=== PATIENT | female | born 1985 | race Caucasian/White ===

== ENCOUNTER 2019-08-01 23:42 | Emergency (ER) | payer BC ==
[2019-08-01] MEDS ORDERED: Sodium Chloride 0.9% 1,000 ML IV SCH (23:45)
[2019-08-01 23:52] VITALS: BP 157/95; PULSE 111
[2019-08-01] MEDS ORDERED: Famotidine 20 MG/2 ML SDV IVPUSH ONE (23:55)
[2019-08-01] MEDS ORDERED: methylPREDNISolone Sodium Succinate 125 MG/2 ML SDV IVPUSH ONE (23:55)
[2019-08-01] MEDS ORDERED: diphenhydrAMINE 50 MG/ML SDV IVPUSH ONE (23:56)
--- NOTE | 2019-08-02 | EDM.PDOC ---
ED HPI GENERAL MEDICAL PROBLEM - General Chief Complaint: Allergic Reaction Stated Complaint: ALLERGIC REACTION Time Seen by Provider: 08/01/19 23:49 Source of Information: Reports: Patient, Family (spouse) History Limitations: Reports: No Limitations - History of Present Illness INITIAL COMMENTS - FREE TEXT/NARRATIVE: 33-year-old female presents to the ED with an acute allergic reaction. Symptoms started about an hour ago. She reports that her and her were out to her 's [employer] constitution party related to his workplace. They had prime rib and pecans on top of placed potatoes. She can't remember eating anything that she hasn't eaten before. She's been on no medications. She's not been sick in any fashion or form. Only allergic reaction of passes been to topical medication used time of surgery she developed erythema of the abdominal wall. Severe nasal congestion swelling of her upper eyelids conjunctival inflammation and swelling or edema she throat itchy ear canals or eustachian tubes. No trouble breathing. Generalized urticaria with erythema and giant hives particularly on the abdomen and groin. Of course severe generalized pruritus. Patient took 50 mg of Benadryl at home within the last 45 minutes. She has no known allergies. Onset: Today Onset Date: 08/01/19 Onset Time: 23:00 Duration: Minutes: Location: Reports: Generalized (Generalized urticaria and pruritus) Quality: Reports: Other Severity: Severe (Generalized urticaria with itching.) Improves with: Reports: None Worsens with: Reports: None Context: Reports: Other ([place] likely to be foodborne as she ate out tonight and had foods that she would not normally eat.). Denies: Activity, Exercise, Lifting, Sick Contact, Trauma Associated Symptoms: Reports: Cough, Rash, Other (Itching throat ears eyes). Denies: Confusion, Chest Pain, cough w sputum, Diaphoresis, Fever/Chills, Headaches, Loss of Appetite (Tip of her throat.), Malaise, Nausea/Vomiting, Seizure (Analyzed urticaria with erythema), Shortness of Breath, Syncope Treatments SAMPLE PROCESSOR: Reports: Other (see below) (She took Benadryl 50 mg before coming to the ED.) - Related Data Allergies Allergy/AdvReac Type Severity Reaction Status Date / Time No Known Allergies Allergy Verified 08/01/19 23:51 Home Meds: Home Meds ODH601/Iron Fumarate/FA/DSS [ 19 Tablet] 1 each PO DAILY 08/01/19 [ History] predniSONE [Prednisone] 20 mg PO BID #6 tablet 08/02/19 [Rx] Past Medical History - Past Health History Medical/Surgical History: Denies Medical/Surgical History HEENT History: Reports: Allergic Rhinitis, Impaired Vision Cardiovascular History: Reports: None Respiratory History: Reports: None Gastrointestinal History: Reports: None Genitourinary History: Reports: Other (See Below) Other Genitourinary History: Has IUD-Mirena ACADEMIC TUTOR History: Reports: Spontaneous Musculoskeletal History: Reports: None Neurological History: Reports: Concussion Other Neuro History: Concussion at 3 yoa Psychiatric History: Reports: None Endocrine/Metabolic History: Reports: None Hematologic History: Reports: Iron Deficiency Immunologic History: Reports: None Oncologic (Cancer) History: Reports: None Dermatologic History: Reports: None - Infectious Disease History Infectious Disease History: Reports: None - Past Surgical History Female Surgical History: Reports: Other (See Below) Other Female Surgeries/Procedures: Pt had left ovary removed. Social & Family History - Family History Family Medical History: Noncontributory - Tobacco Use Smoking Status *Q: Never Smoker - Caffeine Use Caffeine Use: Reports: Tea - Recreational Drug Use Recreational Drug Use: No - Living Situation & Occupation Living situation: Reports: Occupation: Employed ED ROS ALLERGIC REACTION - Review of Systems Review Of Systems: See Below Constitutional: Reports: No Symptoms HEENT: Reports: Throat Swelling (Itching in her throat but no trouble swallowing.), Other (In the eustachian tubes back of her throat and eyes) Respiratory: Denies: Shortness of Breath, Wheezing, Pleuritic Chest Pain, Cough Cardiovascular: Denies: Chest Pain, Blood Pressure Problem, Claudication, Dyspnea on Exertion, Edema, Lightheadedness, Orthopnea Endocrine: Reports: No Symptoms GI/Abdominal: Reports: No Symptoms : Reports: No Symptoms Musculoskeletal: Reports: No Symptoms Skin: Reports: Rash (Developed generalized urticaria), Urticaria ( with pruritus.) Neurological: Reports: No Symptoms Psychiatric: Reports: No Symptoms ED EXAM GENERAL NO PERIP PULSE - Physical Exam Exam: See Below Exam Limited By: No Limitations General Appearance: Alert, WD/WN, Moderate Distress, Other (Vital signs show temperature 36.5 which is likely inaccurate. Pulse is 111 respiratory disease 18 BP 157/95 sats 100%.) Eye Exam: Bilateral Eye: Conjunctival Injection (Duodenum of the conjunctiva bilaterally with mild injection.), Periorbital Changes (Edema of the upper eyelids bilaterally.) Ears: Other (Bilateral serous otitis media) Nose: Nasal Swelling (Nose is completely swollen closed), Clear Rhinorrhea ( from allergic response) Throat/Mouth: Normal Inspection, Normal Lips, Normal Oropharynx, Other Head: Atraumatic, Normocephalic Neck: Normal Inspection, Supple, Non-Tender, Full Range of Motion, Other (No stridor). No: Lymphadenopathy (L), Lymphadenopathy (R) Respiratory/Chest: No Respiratory Distress, Lungs Clear, Normal Breath Sounds, No Accessory Muscle Use. No: Wheezing, Stridor Cardiovascular: Normal Peripheral Pulses, No Edema, No Gallop, No Murmur, No Rub , Tachycardia (Tachycardia at rest. More due to anxiety) GI/Abdominal: Normal Bowel Sounds, Soft, Non-Tender, No Organomegaly, No Abnormal Bruit, No Mass, Pelvis Stable Neurological: Alert, Oriented, CN II-XII Intact, Normal Cognition, Normal Gait Psychiatric: Anxious Skin Exam: Rash, Other (Revised urticaria with giant hives and erythema.) Course - Vital Signs Last Recorded V/S: Last Vital Signs Temp 36.5 C 08/01/19 23:47 Pulse 111 H 08/01/19 23:47 Resp 18 08/01/19 23:47 BP 157/95 H 08/01/19 23:47 Pulse Ox 100 08/01/19 23:47 - Orders/Labs/Meds Meds: Medications Discontinued Medications Generic Name Dose Route Start Last Admin Trade Name Qi PRN Reason Stop Dose Admin Diphenhydramine HCl 25 mg 08/01/19 23:56 08/02/19 00:03 Benadryl IVPUSH 08/01/19 23:57 25 mg ONETIME ONE Administration Famotidine 20 mg 08/01/19 23:55 08/02/19 00:06 Pepcid IVPUSH 08/01/19 23:56 20 mg ONETIME ONE Administration Sodium Chloride 1,000 mls @ 500 mls/hr 08/01/19 23:45 08/02/19 00:03 Normal Saline IV 500 mls/hr ASDIRECTED CARLOS A Administration Methylprednisolone Sodium Succinate 125 mg 08/01/19 23:55 08/02/19 00:05 Solu-Medrol IVPUSH 08/01/19 23:56 125 mg ONETIME ONE Administration - Radiology Interpretation Free Text/Narrative:: 33-year-old female presents to the ED with acute allergic response to unknown substance. It is suspect it is something that she ate at suppertime tonight. She ate at a [place] constitution party of her husbands workplace. She developed symptoms 3 -4 hours later. She is not known to have any allergies other than to topical chlorhexidine or Betadine which gave her a rash on the abdominal wall after surgery. At present she has severe swelling of the nasal turbinates with occlusion of the naris. There is a cystitis media mild conjunctival edema and swelling of her upper lids. Lips are normal oropharynx and is normal swallowing has an itchy throat. Lungs are clear without any wheezing. She has generalized urticaria and giant hives. Plan patient took 50 mg Benadryl by mouth prior to coming to the ED. She'll be given 25 mg IV. Given Cymetra 125 mg IV and Pepcid 20 mg IV in the ED. IV will be normal saline at 500 mils an hour Departure - Departure Time of Disposition: 00:43 Disposition: Home, Self-Care 01 Condition: Fair Clinical Impression: Urticaria due to food allergy Allergic reaction Qualifiers: Encounter type: initial encounter Qualified Code(s): T78.40XA - Allergy, unspecified, initial encounter - Discharge Information *PRESCRIPTION DRUG MONITORING PROGRAM REVIEWED*: Not Applicable *COPY OF PRESCRIPTION DRUG MONITORING REPORT IN PATIENT CAROLS: Not Applicable Prescriptions: predniSONE [Prednisone] 20 mg PO BID #6 tablet Instructions: Hives, [id number] Referrals: PCP,None [Primary Care Provider] - Forms: ED Department Discharge Additional Instructions: Evaluation the emergency room tonight in regards to acute onset of allergic reaction 3-4 hours after eating. Indications and no recent viral illnesses to account for development of generalized hives with significant itching. The reaction was an acute reaction involving marked swelling of the nasal mucosa and itching of the eyes and ears and throat. No wheezing or respiratory problems.Covered with hives. You had taken Benadryl 50 mg at home prior to coming to the ED. In the ED received intravenous fluids and her vital signs remained stable. You never did develop any respiratory distress. You are treated with 25 mg of Benadryl intravenously in the ED and Solu-Medrol 125 mg and Pepcid 20 mg IV for acute allergic reaction. Medrol takes about 4-6 hours to start to work well. He may use Benadryl 50 mg by mouth every 6 hours if needed for further itching or hives development. Suggest prednisone 20 mg by mouth with breakfast and supper for the next 3 days to ensure that the mass cells in your skin settle down and do not continue to cause hives and allergic response. He suspects it was something you a tonight to precipitated acute allergic reaction. Unfortunately is no way to tell what this could've been. Return to medical care if you develop any trouble swallowing or breathing. Note this is highly unlikely to occur Sepsis Event Note - Evaluation Sepsis Screening Result: No Definite Risk - Focused Exam Vital Signs: Vital Signs Temp Pulse Resp BP Pulse Ox 08/01/19 23:47 36.5 C 111 H 18 157/95 H 100 Date Exam was Performed: 08/02/19 Time Exam was Performed: 02:09
== END 2019-08-02 00:55 | disposition home or self-care (01) ==
LOC: JD.ED 23:42
DX: L50.0 Allergic urticaria (principal); T78.1XXA Other adverse food reactions, not elsewhere classified, initial encounter
CPT/HCPCS: 96361; 96374; 96375; 99283; J1200; J2930; J3490; J7030; 99284

== ENCOUNTER 2020-10-30 06:33 | Inpatient (IN) | payer BC ==
[2020-10-30] MEDS ORDERED: Calcium Carbonate 500 MG Tab.Chew PO PRN (19:33)
[2020-10-30] MEDS ORDERED: Acetaminophen 325 MG Tab PO PRN (19:33)
[2020-10-30] MEDS ORDERED: Sodium Chloride 0.9% 10 ML Syringe FLUSH PRN (19:33)
[2020-10-30] MEDS ORDERED: Ondansetron 4 MG/2 ML SDV IVPUSH PRN (19:33)
[2020-10-30] MEDS ORDERED: Lidocaine 1% 50 ML MDV INJECT ONE (19:33)
[2020-10-30] MEDS ORDERED: Oxytocin/Lactated Ringers 10 UNIT/1,000 ML BAG IV SCH ×2 (19:45)
[2020-10-30] MEDS ORDERED: Ampicillin 2 GM in Sodium Chloride 0.9% 100 ML IV ONE (20:00)
--- NOTE | 2020-10-30 20:01 | PCM.LDHP ---
L&D History of Present Illness - General Date of Service: 10/30/20 Admit Problem/Dx: Patient Status Order with Admit Dx/Problem 10/30/20 19:33 Patient Status [ADT] Routine Admission Diagnosis/Problem Admission Diagnosis/Problem Source of Information: Patient History Limitations: Reports: No Limitations - History of Present Illness Introduction:: Christy Tim is a GBS + 34 year old female at 40-6 weeks gestation age (RUBI 10/24/20) by 12 week US and LMP who presents today for induction of labor. She has had some irregular contractions but nothing painful. She denies any leaking of fluid, changes in her discharge or vaginal bleeding. She reports good movement. Pain Score: 0 Present Illness Comments:: Christy Tim is a GBS + O + 34 year old female at 40-6 weeks gestation age (RUBI 10/24/20) by 12 week US and LMP who presents today for induction of labor. Patient has received routine care and denies any complications during her . She was started on iron supplementation during her for anemia. she received the flu vaccine in May of 2020 and Tdap in July of 2020. Her is complicated by: * anemia in and has been on iron supplementation OBGYN History 07/31/2019 - miscarriage at 10 weeks G2: current labs: Blood type: O+ Antibody screen: Negative Rubella status: immune Hepatitis B surface antigen: negative RPR: negative HIV: negative Gonorrhea: Negative Chlamydia: negative Anatomy US: Normal anatomy, normal placental location One hour glucose tolerance test: 103 Second trimester hematocrit/hemoglobin: 36.0%/11.8 Platelets: 233,000 GBS status: positive - Related Data Allergies/Adverse Reactions: Allergies Allergy/AdvReac Type Severity Reaction Status Date / Time chlorhexidine Allergy Hives Verified 10/30/20 19:33 Home Medications: Home Meds Prenat 115/Iron Fum/Folic/Dss [ 19 Tablet] 1 each PO DAILY 08/01/19 [History] predniSONE [Prednisone] 20 mg PO BID #6 tablet 08/02/19 [Rx] Past Medical History - Past Health History Medical/Surgical History: Denies Medical/Surgical History HEENT History: Reports: Allergic Rhinitis, Impaired Vision Cardiovascular History: Reports: None Respiratory History: Reports: None Gastrointestinal History: Reports: None Genitourinary History: Reports: Other (See Below) Other Genitourinary History: Has IUD-Mirena QUILT MAKER History: Reports: Spontaneous Musculoskeletal History: Reports: None Neurological History: Reports: Concussion Other Neuro History: Concussion at 3 yoa Psychiatric History: Reports: None Endocrine/Metabolic History: Reports: None Hematologic History: Reports: Iron Deficiency Immunologic History: Reports: None Oncologic (Cancer) History: Reports: None Dermatologic History: Reports: None - Infectious Disease History Infectious Disease History: Reports: None - Past Surgical History Female Surgical History: Reports: Other (See Below) Other Female Surgeries/Procedures: Pt had left ovary removed. Social & Family History - Family History Family Medical History: No Pertinent Family History - Caffeine Use Caffeine Use: Reports: Tea - Living Situation & Occupation Living situation: Reports: Occupation: Employed H&P Review of Systems - Review of Systems: Review Of Systems: See Below General: Reports: No Symptoms HEENT: Reports: No Symptoms Pulmonary: Reports: No Symptoms Cardiovascular: Reports: No Symptoms Gastrointestinal: Reports: No Symptoms Genitourinary: Reports: No Symptoms Musculoskeletal: Reports: No Symptoms Skin: Reports: No Symptoms Psychiatric: Reports: No Symptoms Neurological: Reports: No Symptoms Hematologic/Lymphatic: Reports: No Symptoms Immunologic: Reports: No Symptoms L&D Exam - Exam Exam: See Below - Vital Signs Weight: 183 lb 11.2 oz - OB Specific Movement: Active Heart Tones: Present - Garcia Score Garcia Score Cervix Position: Midposition Garcia Score Consistency: Medium Garcia Score Effacement: >80% Garcia Score Dilation: 3-4 cm Garcia Score Infant's Station: -1 ,0 Garcia Score Total: 9 - Exam General: Alert, Oriented HEENT: Conjunctiva Clear, EOMI Lungs: Clear to Auscultation, Normal Respiratory Effort Cardiovascular: Regular Rate, Regular Rhythm GI/Abdominal Exam: Normal Bowel Sounds, Soft, Non-Tender Extremities: Normal Inspection, Non-Tender, No Pedal Edema, Normal Capillary Refill Skin: Warm, Dry, Intact Psychiatric: Alert, Normal Affect, Normal Mood - Patient Data Lab Results Last 24 hrs: Laboratory Results - last 24 hr 10/30/20 Range/Units 19:46 WBC 8.38 (3.98-10.04) K/mm3 RBC 3.82 L (3.98-5.22) M/mm3 Hgb 11.9 (11.2-15.7) gm/dl Hct 35.9 (34.1-44.9) % MCV 94.0 (79.4-94.8) fl MCH 31.2 (25.6-32.2) pg MCHC 33.1 (32.2-35.5) g/dl RDW Std Deviation 41.7 (36.4-46.3) fL Plt Count 180 L (182-369) K/mm3 MPV 12.5 H (9.4-12.3) fl Neut % (Auto) 64.2 (34.0-71.1) % Lymph % (Auto) 24.8 (19.3-51.7) % [place] % (Auto) 9.8 (4.7-12.5) % Eos % (Auto) 0.8 (0.7-5.8) Baso % (Auto) 0.2 (0.1-1.2) % Neut # (Auto) 5.37 (1.56-6.13) K/mm3 Lymph # (Auto) 2.08 (1.18-3.74) K/mm3 [place] # (Auto) 0.82 H (0.24-0.36) K/mm3 Eos # (Auto) 0.07 (0.04-0.36) K/mm3 Baso # (Auto) 0.02 (0.01-0.08) K/mm3 Result Diagrams: 10/30/20 19:46 - Problem List (1) 40 weeks gestation of SNOMED Code(s): 98838673 ICD Code: Z3A.40 - 40 WEEKS GESTATION OF Status: Acute Current Visit: Yes (2) Group B streptococcal infection during SNOMED Code(s): 323365969 ICD Code: O98.819 - OTH MATERNAL INFEC/PARASTC DISEASES COMP PREG, UNSP TRI; B95.1 - STREPTOCOCCUS, GROUP B, CAUSING DISEASES CLASSD ELSWHR Status: Acute Current Visit: Yes (3) Encounter for induction of labor SNOMED Code(s): 083621214 ICD Code: Z34.90 - ENCNTR FOR SUPRVSN OF NORMAL , UNSP, UNSP TRIMESTER Status: Acute Current Visit: Yes Problem List Initiated/Reviewed/Updated: Yes Orders Last 24hrs: Active Orders 24 hr Category Date Time Status Patient Status [ADT] Routine ADT 10/30/20 19:33 Active Activity as Tolerated [RC] PFP Care 10/30/20 19:33 Active Communication Order [RC] ASDIRECTED Care 10/30/20 19:33 Active Heart Tones [RC] ASDIRECTED Care 10/30/20 19:34 Active Non Stress Test [RC] PER UNIT ROUTINE Care 10/30/20 19:33 Active Notify Provider [RC] PFP Care 10/30/20 19:33 Active Notify Provider [RC] PRN Care 10/30/20 19:33 Active Peripheral IV Care [RC] . DIRECTED Care 10/30/20 19:34 Active Vital Signs [RC] PER UNIT ROUTINE Care 10/30/20 19:33 Active Regular Diet [DIET] Diet 10/31/20 Breakfast Active CORONAVIRUS COVID-19 MINISTERIO [MOLEC] Stat Lab 10/30/20 19:37 Ordered RAPID PLASMA REAGIN,RPR [CHEM] Routine Lab 10/30/20 19:46 Received Acetaminophen [TylenoL] Med 10/30/20 19:33 Active 650 mg PO Q4H PRN Ampicillin 1 gm Med 10/31/20 00:00 Active Sodium Chloride 0.9% [Normal Saline] 100 ml IV Q4H Ampicillin 2 gm Med 10/30/20 20:00 Active Sodium Chloride 0.9% [Normal Saline] 100 ml IV ONETIME Calcium Carbonate [Tums] Med 10/30/20 19:33 Active 1,000 mg PO Q2H PRN Lactated Ringers [Ringers, Lactated] 1,000 ml Med 10/30/20 19:45 Active IV ASDIRECTED Nalbuphine [Nubain] Med 10/30/20 19:33 Active 10 mg IVPUSH Q2H PRN Ondansetron [Zofran] Med 10/30/20 19:33 Active 4 mg IVPUSH Q4H PRN Oxytocin/Lactated Ringers [Pitocin in LR 10 Units/1,000 Med 10/30/20 19:45 Active ML] 10 unit in 1,000 ml IV .CONTINUOUS Oxytocin/Lactated Ringers [Pitocin in LR 10 Units/1,000 Med 10/30/20 19:45 Active ML] 10 unit in 1,000 ml IV TITRATE Sodium Chloride 0.9% [Saline Flush] Med 10/30/20 19:33 Active 10 ml FLUSH ASDIRECTED PRN Electronic Heart Tones Ext w TOCO [WOMSER] Oth 10/30/20 19:33 Ordered Routine Electronic Heart Tones Internal [WOMSER] Per Unit Ot 10/30/20 19:33 Ord ered Routine Peripheral IV Insertion Adult [OM.PC] Routine Oth 10/30/20 19:33 Ordered Resuscitation Status Routine Resus Stat 10/30/20 19:33 Ordered Assessment/Plan Comment:: Patient is a 34 year old GBS + O+ 34 year old at 40-6 weeks gestational age with an RUBI of 10/24/20 by 12 week US who presents for induction of labor. Artificial rupture of membranes performed at bedside with scant clear pink tinged fluid. Mother and tolerated the procedure without difficulty. 1. Induction of labor - AROM, pitocin for augmentation if patient is having insufficient contraction pattern 2. Continuous monitoring 3. GBS + - no allergies, 2 mg Ampicillin given IV with repeat dose in 4 hours per protocol 4. O+ with negative antibody screen 5. Rubella immune 6. IV fluids 7. Activity as tolerated 8. Small amounts of regular diet 9. Epidural or other pain management as desired 10. Plans to breastfeed 11. Anticipate vaginal delivery unless otherwise indicated
[2020-10-30] MEDS: Lactated Ringers 1,000 ML IV SCH (20:32)
[2020-10-31] MEDS: Ampicillin 1 GM in Sodium Chloride 0.9% 100 ML IV SCH ×2 (00:30→03:56)
[2020-10-31] MEDS: Nalbuphine 10 MG/1 ML Vial IVPUSH PRN ×2 (02:00→04:00)
[2020-10-31] MEDS: Lactated Ringers 1,000 ML IV SCH (03:57)
[2020-10-31] MEDS ORDERED: Lidocaine 1% 50 ML MDV ONE (06:34)
[2020-10-31] MEDS ORDERED: Ondansetron 4 MG/2 ML SDV IVPUSH PRN (06:51)
[2020-10-31] MEDS ORDERED: ePHEDrine 50 MG/ML SDV IVPUSH PRN (06:51)
[2020-10-31] MEDS ORDERED: fentaNYL 100 MCG/2 ML SDV EPIDUR PRN (06:51)
--- NOTE | 2020-10-31 06:53 | PCM.PREANE ---
Preanesthetic Assessment - Procedure Proposed Procedure: Epidural - Anesthesia/Transfusion/Family Hx Anesthesia History: Prior Anesthesia Without Reaction Family History of Anesthesia Reaction: No Transfusion History: No Prior Transfusion(s) Intubation History: Unknown - Physical Assessment NPO Status Date: 10/31/20 Vital Signs: HR:81 Sat:99% Temp:98.6 B/P:150/89 Resp:15 Height: 1.78 m Weight: 83.007 kg ASA Class: 2 Mental Status: Alert & Oriented x3 - Lab Values: Laboratory Last Values WBC 8.38 K/mm3 (3.98-10.04) 10/30/20 19:46 RBC 3.82 M/mm3 (3.98-5.22) L 10/30/20 19:46 Hgb 11.9 gm/dl (11.2-15.7) 10/30/20 19:46 Hct 35.9 % (34.1-44.9) 10/30/20 19:46 MCV 94.0 fl (79.4-94.8) 10/30/20 19:46 MCH 31.2 pg (25.6-32.2) 10/30/20 19:46 MCHC 33.1 g/dl (32.2-35.5) 10/30/20 19:46 RDW Std Deviation 41.7 fL (36.4-46.3) 10/30/20 19:46 Plt Count 180 K/mm3 (182-369) L 10/30/20 19:46 MPV 12.5 fl (9.4-12.3) H 10/30/20 19:46 Neut % (Auto) 64.2 % (34.0-71.1) 10/30/20 19:46 Lymph % (Auto) 24.8 % (19.3-51.7) 10/30/20 19:46 [place] % (Auto) 9.8 % (4.7-12.5) 10/30/20 19:46 Eos % (Auto) 0.8 (0.7-5.8) 10/30/20 19:46 Baso % (Auto) 0.2 % (0.1-1.2) 10/30/20 19:46 Neut # (Auto) 5.37 K/mm3 (1.56-6.13) 10/30/20 19:46 Lymph # (Auto) 2.08 K/mm3 (1.18-3.74) 10/30/20 19:46 [place] # (Auto) 0.82 K/mm3 (0.24-0.36) H 10/30/20 19:46 Eos # (Auto) 0.07 K/mm3 (0.04-0.36) 10/30/20 19:46 Baso # (Auto) 0.02 K/mm3 (0.01-0.08) 10/30/20 19:46 SARS-CoV-2 RNA (MINISTERIO) Negative (NEGATIVE) 10/30/20 20:22 Above labs reviewed and noted and within acceptable ranges to proceed with epidural if desired. - Allergies Allergies/Adverse Reactions: Allergies Allergy/AdvReac Type Severity Reaction Status Date / Time chlorhexidine Allergy Hives Verified 10/30/20 19:33 - Anesthesia Plan Pre-Op Medication Ordered: None - Acknowledgements Anesthesia Type Planned: Epidural Pt an Appropriate Candidate for the Planned Anesthesia: Yes Alternatives and Risks of Anesthesia Discussed w Pt/Guardian: Yes Pt/Guardian Understands and Agrees with Anesthesia Plan: Yes PreAnesthesia Questionnaire - Past Health History Medical/Surgical History: Denies Medical/Surgical History HEENT History: Reports: Allergic Rhinitis, Impaired Vision, Other (See Below) Other HEENT History: Wear contacts/ glasses Cardiovascular History: Reports: None Respiratory History: Reports: None Gastrointestinal History: Reports: None Genitourinary History: Reports: Other (See Below) Other Genitourinary History: Has IUD-Mirena DIRECTOR OF THER[employer]Y SERVICES History: Reports: Spontaneous Musculoskeletal History: Reports: None Neurological History: Reports: Concussion Other Neuro History: Concussion at 3 yoa Psychiatric History: Reports: None Endocrine/Metabolic History: Reports: None Hematologic History: Reports: Iron Deficiency Immunologic History: Reports: None Oncologic (Cancer) History: Reports: None Dermatologic History: Reports: None - Infectious Disease History Infectious Disease History: Reports: None - Past Surgical History HEENT Surgical History: Reports: None Female Surgical History: Reports: Other (See Below) Other Female Surgeries/Procedures: Pt had left ovary removed. Neurological Surgical History: Reports: None - SUBSTANCE USE Tobacco Use Status *Q: Never Tobacco User Second Hand Smoke Exposure: No Recreational Drug Use History: No - HOME MEDS Home Medications: Home Meds Prenat 115/Iron Fum/Folic/Dss [ 19 Tablet] 1 each PO DAILY 08/01/19 [History] Calcium Citrate/Vitamin D2 [Jame-Citrate Plus Vitamin D Tab] 1 each PO ASDIRECTED 10/30/20 [History] Ferrous Sulfate [Iron] 325 mg PO ASDIRECTED 10/30/20 [History] Fish Oil/[place]-3 Fatty Acids [Fish Oil 1,000 MG] 1 each PO DAILY 10/30/20 [History]
[2020-10-31] MEDS ORDERED: Bupivacaine/fentaNYL/NS 100 ML Bag EPIDUR SCH (07:00)
[2020-10-31] MEDS ORDERED: Witch Hazel Medicated Pads 40/Jar TOP PRN (07:37)
[2020-10-31] MEDS ORDERED: Ibuprofen 600 MG Tab PO PRN (07:37)
[2020-10-31] MEDS ORDERED: Acetaminophen 325 MG Tab PO PRN (07:37)
[2020-10-31] MEDS ORDERED: Benzocaine/Menthol 20%-0.5% Spray 56 GM Canister TOP PRN (07:37)
--- NOTE | 2020-10-31 07:39 | PCM.DEL ---
<Sunny Garcia - Last Filed: 10/31/20 07:46> L & D Note - General Info Date of Service: 10/31/20 Mother's Due Date: 10/24/20 - Delivery Note Labor: Augmented by ARM Cervical Ripening Method: Other (see below) Other Cervical Ripening Method: AROM Delivery Outcome: Livebirth Delivery Method: Spontaneous Vaginal Delivery-Single Delivery Mode: Spontaneous Presentation: Right Occiput Anterior (ELIEL) Nuchal Cord: None Anesthesia Type: Other (see below) (nubain) Anesthetic: Lidocaine (Xylocaine) 1% Plain Local Anesthetic Volume: Other (30cc) Amniotic Fluid Description: Clear (pink tinge) Episiotomy Type: None Laceration: 2nd Degree Suture type: Other (Monocryl) Suture size: 3-0 Placenta: Intact, Spontaneous Cord: 3 Vessels Estimated Blood Loss: 700 Resuscitation Needed: No : Suctioned, Stimulated, Warmed Score 1 min: 8 Score 5 min: 9 Second Stage Interventions: Reports: Encouragement Given Delivery Comments (Free Text/Narrative):: Stage I: 34 year old at 40-6 weeks gestational age presented to L&D for induction of labor due to late term. AROM was preformed with scant clear fluid. Mother and baby tolerated procedure well. GBS +. Nubain given for pain control. Patient progressed to complete and began pushing. Stage II: On 10/31/20 she had a of a live female infant at 0635 weighing 3680 g (8 lbs 1.8 ounces) and 21 inches with APGARs of 8/9 in the ELIEL position. No noted nuchal cord. Infant was place on the mother's abdomen and was warmed and stimulated. The cord was cut after 2 minutes by the infant's father. Stage III: The placenta was then delivered spontaneously with gentle traction in the De Guzman presentation at 0649. Inspection demonstrated intact placenta with three vessel cord. The placenta was discarded. Inspection of the vaginal mucosa demonstrated a left sided vaginal wall laceration with a midline second degree laceration extending to the perineum. The laceration was closed using 3-0 Monocryl. EBL 700. Mom and baby stable to recovery. - General Info Date of Service: 10/31/20 - Patient Data Weight - Most Recent: 83.007 kg Lab Results Last 24 Hours: Laboratory Results - last 24 hr 10/30/20 10/30/20 Range/Units 19:46 20:22 WBC 8.38 (3.98-10.04) K/mm3 RBC 3.82 L (3.98-5.22) M/mm3 Hgb 11.9 (11.2-15.7) gm/dl Hct 35.9 (34.1-44.9) % MCV 94.0 (79.4-94.8) fl MCH 31.2 (25.6-32.2) pg MCHC 33.1 (32.2-35.5) g/dl RDW Std Deviation 41.7 (36.4-46.3) fL Plt Count 180 L (182-369) K/mm3 MPV 12.5 H (9.4-12.3) fl Neut % (Auto) 64.2 (34.0-71.1) % Lymph % (Auto) 24.8 (19.3-51.7) % [place] % (Auto) 9.8 (4.7-12.5) % Eos % (Auto) 0.8 (0.7-5.8) Baso % (Auto) 0.2 (0.1-1.2) % Neut # (Auto) 5.37 (1.56-6.13) K/mm3 Lymph # (Auto) 2.08 (1.18-3.74) K/mm3 [place] # (Auto) 0.82 H (0.24-0.36) K/mm3 Eos # (Auto) 0.07 (0.04-0.36) K/mm3 Baso # (Auto) 0.02 (0.01-0.08) K/mm3 SARS-CoV-2 RNA (MINISTERIO) Negative (NEGATIVE) - Problem List & Annotations (1) 40 weeks gestation of SNOMED Code(s): 67004318 Code(s): Z3A.40 - 40 WEEKS GESTATION OF Status: Acute Current Visit: Yes (2) Group B streptococcal infection during SNOMED Code(s): 640426068 Code(s): O98.819 - OTH MATERNAL INFEC/PARASTC DISEASES COMP PREG, UNSP TRI; B95.1 - STREPTOCOCCUS, GROUP B, CAUSING DISEASES CLASSD ELSWHR Status: Acute Current Visit: Yes (3) Encounter for induction of labor SNOMED Code(s): 623848972 Code(s): Z34.90 - ENCNTR FOR SUPRVSN OF NORMAL , UNSP, UNSP TRIMESTER Status: Acute Current Visit: Yes (4) Spontaneous vaginal delivery SNOMED Code(s): 970668621 Code(s): O80 - ENCOUNTER FOR FULL-TERM UNCOMPLICATED DELIVERY Status: Acute Current Visit: Yes (5) Second degree perineal laceration SNOMED Code(s): 8876216 Code(s): O70.1 - SECOND DEGREE PERINEAL LACERATION DURING DELIVERY Status: Acute Current Visit: Yes - My Orders Last 24 Hours: My Active Orders 10/31/20 07:27 Patient Status Manage Transfer [TRANSFER] Routine 10/31/20 07:28 Resuscitation Status Routine - Plan Plan:: Patient is a 34 year old GBS + O+ 34 year old G2 now P1011 at 41-0 weeks gestational age with an RUBI of 10/24/20 by 12 week US who presented for induction of labor with AROM and had a of a live female infant weighing 3680 g (8 lbs 1.8 ounce) with APGARs of 8/9 at 0635 on 10/31/20. 1. PPD#0 of a live female weighing 3680 g (8 lbs 1.8 ounce) with APGARs of 8/9 at 0635 on 10/31/20 2. GBS + - received 2 mg of Ampicillin followed by 2 doses of 1 mg at 0000 and 0400. 4. O+ with negative antibody screen 5. Rubella immune 6. Activity as tolerated 7. Regular diet 8. Plans to breastfeed 9. Post care per unit routine 10. Anticipate discharge in 48 hours pending tray line worker's recommendation <Frandy Plummer F - Last Filed: 10/31/20 13:11> - Patient Data Vitals - Most Recent: Last Vital Signs Temp 36.8 C 10/30/20 19:33 Pulse 90 10/30/20 19:33 Resp 16 10/30/20 19:33 BP 147/94 H 10/30/20 19:33 Pulse Ox Lab Results Last 24 Hours: Laboratory Results - last 24 hr 10/30/20 10/30/20 Range/Units 19:46 20:22 WBC 8.38 (3.98-10.04) K/mm3 RBC 3.82 L (3.98-5.22) M/mm3 Hgb 11.9 (11.2-15.7) gm/dl Hct 35.9 (34.1-44.9) % MCV 94.0 (79.4-94.8) fl MCH 31.2 (25.6-32.2) pg MCHC 33.1 (32.2-35.5) g/dl RDW Std Deviation 41.7 (36.4-46.3) fL Plt Count 180 L (182-369) K/mm3 MPV 12.5 H (9.4-12.3) fl Neut % (Auto) 64.2 (34.0-71.1) % Lymph % (Auto) 24.8 (19.3-51.7) % [place] % (Auto) 9.8 (4.7-12.5) % Eos % (Auto) 0.8 (0.7-5.8) Baso % (Auto) 0.2 (0.1-1.2) % Neut # (Auto) 5.37 (1.56-6.13) K/mm3 Lymph # (Auto) 2.08 (1.18-3.74) K/mm3 [place] # (Auto) 0.82 H (0.24-0.36) K/mm3 Eos # (Auto) 0.07 (0.04-0.36) K/mm3 Baso # (Auto) 0.02 (0.01-0.08) K/mm3 SARS-CoV-2 RNA (MINISTERIO) Negative (NEGATIVE) - Problem List Review Problem List Initiated/Reviewed/Updated: Yes - My Orders Last 24 Hours: My Active Orders 10/30/20 19:46 RAPID PLASMA REAGIN,RPR [CHEM] Routine
[2020-10-31] MEDS: Prenatal Multivitamin with Calcium/Folic Acid/Iron Tab PO SCH (09:39)
[2020-10-31] MEDS: Docusate Sodium 100 MG Cap PO SCH ×2 (09:39→20:40)
--- NOTE | 2020-11-01 06:57 | PCM.PNPP ---
- General Info Date of Service: 11/01/20 Functional Status: Reports: Pain Controlled, Tolerating Diet, Ambulating, Urinating - Review of Systems General: Reports: Fatigue Pulmonary: Reports: No Symptoms Cardiovascular: Reports: Lightheadedness Gastrointestinal: Reports: No Symptoms Genitourinary: Reports: No Symptoms Musculoskeletal: Reports: No Symptoms - Patient Data Vital Signs - Most Recent: Last Vital Signs Temp 36.8 C 11/01/20 03:34 Pulse 84 11/01/20 03:34 Resp 18 11/01/20 03:34 BP 127/76 11/01/20 03:34 Pulse Ox 95 11/01/20 03:34 Weight - Most Recent: 83.007 kg I&O - Last 24 Hours: Intake & Output 10/31/20 10/31/20 11/01/20 14:59 22:59 06:59 Intake Total 120 Balance 120 Lab Results - Last 24 Hours: Laboratory Results - last 24 hr 10/30/20 11/01/20 Range/Units 19:46 06:15 WBC 9.50 (3.98-10.04) K/mm3 RBC 2.44 L (3.98-5.22) M/mm3 Hgb 7.3 L* D (11.2-15.7) gm/dl Hct 23.7 L (34.1-44.9) % MCV 97.1 H D (79.4-94.8) fl MCH 29.9 (25.6-32.2) pg MCHC 30.8 L (32.2-35.5) g/dl RDW Std Deviation 42.8 (36.4-46.3) fL Plt Count 133 L (182-369) K/mm3 MPV 11.8 (9.4-12.3) fl RPR Non-reactive (NONREACTIVE) Med Orders - Current: Current Medications Acetaminophen (Acetaminophen 325 Mg Tab) 650 mg PO Q4H PRN PRN Reason: mild pain or fever Benzocaine/Menthol (Benzocaine/Menthol 20%-0.5% [place] 56 Gm Canister) 0 gm TOP ASDIRECTED PRN PRN Reason: Perineal Comfort Measure Last Admin: 10/31/20 09:40 Dose: 1 spray Documented by: Docusate Sodium (Docusate Sodium 100 Mg Cap) 100 mg PO BID [facility] Last Admin: 10/31/20 20:40 Dose: 100 mg Documented by: Ibuprofen (Ibuprofen 600 Mg Tab) 600 mg PO Q4H PRN PRN Reason: Mild pain or fever Prenat Multivit/Critical Power Technician/Iron/Folic Ac ( Multivitamin With Calcium/Folic Acid/Iron Tab) 1 each PO DAILY CARLOS A Last Admin: 10/31/20 09:39 Dose: 1 each Documented by: Laurel Grigsby (Laurel Grigsby Medicated Pads 40/Jar) 1 pad TOP ASDIRECTED PRN PRN Reason: Perineal Comfort Measure Last Admin: 10/31/20 09:39 Dose: 1 pad Documented by: Discontinued Medications Acetaminophen (Acetaminophen 325 Mg Tab) 650 mg PO Q4H PRN PRN Reason: Pain (Mild 1-3) and fever Calcium Carbonate/Glycine (Calcium Carbonate 500 Mg Tab.Chew) 1,000 mg PO Q2H PRN PRN Reason: Indigestion Ephedrine Sulfate (Ephedrine 50 Mg/Ml Sdv) 5 mg IVPUSH ASDIRECTED PRN PRN Reason: Hypotension Fentanyl (Fentanyl 100 Mcg/2 Ml Sdv) 100 mcg EPIDUR Q3H PRN PRN Reason: Pain Fentanyl/Bupivacaine HCl (Bupivacaine/Fentanyl/Ns 100 Ml Bag) 100 ml EPIDUR ASDIRECTED CARLOS A Ampicillin Sodium 2 gm/ Sodium (Chloride) 100 mls @ 200 mls/hr IV ONETIME ONE Stop: 10/30/20 20:29 Last Admin: 10/30/20 20:32 Dose: 200 mls/hr Documented by: Ampicillin Sodium 1 gm/ Sodium (Chloride) 100 mls @ 200 mls/hr IV Q4H [facility] Last Admin: 10/31/20 03:56 Dose: 200 mls/hr Documented by: Oxytocin/Lactated Ringer's (Pitocin In Lr 10 Units/1,000 Ml) 10 unit in 1,000 mls @ 500 mls/hr IV .CONTINUOUS CARLOS A Oxytocin/Lactated Ringer's (Pitocin In Lr 10 Units/1,000 Ml) 10 unit in 1,000 mls @ 12 mls/hr IV TITRATE CARLOS A; Protocol Lactated Ringer's (Ringers, Lactated) 1,000 mls @ 100 mls/hr IV ASDIRECTED CARLOS A Last Admin: 10/31/20 03:57 Dose: 100 mls/hr Documented by: Lidocaine HCl (Lidocaine 1% 50 Ml Mdv) 50 ml INJECT ONETIME ONE Stop: 10/30/20 19:34 Last Admin: 10/31/20 06:35 Dose: 50 ml Documented by: Lidocaine HCl (Lidocaine 1% 50 Ml Mdv) Confirm Administered Dose 50 ml .ROUTE .STK-MED ONE Stop: 10/31/20 06:35 Last Admin: 10/31/20 21:48 Dose: Not Given Documented by: Miscellaneous Medication (Phenylephrine Hcl In 0.9% Nacl 1 Mg/10 Ml Syringe) 0 mg IVPUSH ONETIME ONE Stop: 10/31/20 06:52 Last Admin: 10/31/20 21:48 Dose: Not Given Documented by: Nalbuphine HCl (Nalbuphine 10 Mg/1 Ml Vial) 10 mg IVPUSH Q2H PRN PRN Reason: Pain Last Admin: 10/31/20 04:00 Dose: 10 mg Documented by: Ondansetron HCl (Ondansetron 4 Mg/2 Ml Sdv) 4 mg IVPUSH Q4H PRN PRN Reason: Nausea/Vomiting Ondansetron HCl (Ondansetron 4 Mg/2 Ml Sdv) 4 mg IVPUSH ONETIME PRN PRN Reason: Nausea/Vomiting Sodium Chloride (Sodium Chloride 0.9% 10 Ml Syringe) 10 ml FLUSH ASDIRECTED PRN PRN Reason: Keep Vein Open - Infant Interaction Disposition, : [place] in Room with Family Interaction: Holding Infant Feeding: Attempted ; Nursed Fair/Poor Support Person: - Recovery Exam Fundal Tone: Firm Fundal Level: 3 Fingerbreadths Below Umbilicus Fundal Placement: Midline Lochia Amount: Small Lochia Color: Rubra/Red Perineum Description: Other (see below) Other Perinuem Description: 2nd degree with repair Bladder Status: Voiding - Exam General: Alert, Oriented, Cooperative GI/Abdominal Exam: Soft, Non-Tender - Problem List & Annotations (1) 40 weeks gestation of SNOMED Code(s): 44418487 Code(s): Z3A.40 - 40 WEEKS GESTATION OF Status: Acute Current Visit: Yes (2) Second degree perineal laceration SNOMED Code(s): 7910859 Code(s): O70.1 - SECOND DEGREE PERINEAL LACERATION DURING DELIVERY Status: Acute Current Visit: Yes (3) Spontaneous vaginal delivery SNOMED Code(s): 680896762 Code(s): O80 - ENCOUNTER FOR FULL-TERM UNCOMPLICATED DELIVERY Status: Acute Current Visit: Yes (4) hemorrhage SNOMED Code(s): 63803785 Code(s): O72.1 - OTHER IMMEDIATE HEMORRHAGE Status: Acute Current Visit: Yes Qualifiers: hemorrhage type: unspecified Qualified Code(s): O72.1 - Other immediate hemorrhage - Problem List Review Problem List Initiated/Reviewed/Updated: Yes - Assessment Assessment:: PPD#1 - Plan Plan:: * Routine cares * Hb today 7.3. Patient with mild symptoms of anemia, but notes hasn't been on longer walk yet. Reviewed that if she feels more dizzy, lightheaded, etc with activity today we can consider transfusion. If tolerates well can build back up with iron supplementation. Patient and family agree * Breast feeding * Discharge home tomorrow
[2020-11-01] MEDS: Docusate Sodium 100 MG Cap PO SCH ×2 (08:50→20:23)
[2020-11-01] MEDS: Prenatal Multivitamin with Calcium/Folic Acid/Iron Tab PO SCH (08:50)
[2020-11-02] MEDS: Prenatal Multivitamin with Calcium/Folic Acid/Iron Tab PO SCH (08:28)
[2020-11-02] MEDS: Docusate Sodium 100 MG Cap PO SCH (08:28)
--- NOTE | 2020-11-02 08:57 | PCM.PNPP ---
- General Info Date of Service: 11/02/20 Functional Status: Reports: Pain Controlled, Tolerating Diet, Ambulating, Urinating - Review of Systems General: Reports: No Symptoms. Denies: Fatigue Pulmonary: Reports: No Symptoms Cardiovascular: Reports: No Symptoms. Denies: Palpitations, Lightheadedness Gastrointestinal: Reports: No Symptoms Genitourinary: Reports: No Symptoms Musculoskeletal: Reports: No Symptoms Neurological: Reports: No Symptoms - Patient Data Vital Signs - Most Recent: Last Vital Signs Temp 36.7 C 11/02/20 03:56 Pulse 76 11/02/20 03:49 Resp 16 11/02/20 03:49 BP 115/96 H 11/02/20 03:49 Pulse Ox 98 11/02/20 03:49 Weight - Most Recent: 83.007 kg Med Orders - Current: Current Medications Acetaminophen (Acetaminophen 325 Mg Tab) 650 mg PO Q4H PRN PRN Reason: mild pain or fever Benzocaine/Menthol (Benzocaine/Menthol 20%-0.5% [place] 56 Gm Canister) 0 gm TOP ASDIRECTED PRN PRN Reason: Perineal Comfort Measure Last Admin: 10/31/20 09:40 Dose: 1 spray Documented by: Docusate Sodium (Docusate Sodium 100 Mg Cap) 100 mg PO BID [facility] Last Admin: 11/02/20 08:28 Dose: 100 mg Documented by: Ibuprofen (Ibuprofen 600 Mg Tab) 600 mg PO Q4H PRN PRN Reason: Mild pain or fever Prenat Multivit/[place]/Iron/Folic Ac ( Multivitamin With Calcium/Folic Acid/Iron Tab) 1 each PO DAILY [facility] Last Admin: 11/02/20 08:28 Dose: 1 each Documented by: Laurel Grigsby (Laurel Grigsby Medicated Pads 40/Jar) 1 pad TOP ASDIRECTED PRN PRN Reason: Perineal Comfort Measure Last Admin: 10/31/20 09:39 Dose: 1 pad Documented by: Discontinued Medications Acetaminophen (Acetaminophen 325 Mg Tab) 650 mg PO Q4H PRN PRN Reason: Pain (Mild 1-3) and fever Calcium Carbonate/Glycine (Calcium Carbonate 500 Mg Tab.Chew) 1,000 mg PO Q2H PRN PRN Reason: Indigestion Ephedrine Sulfate (Ephedrine 50 Mg/Ml Sdv) 5 mg IVPUSH ASDIRECTED PRN PRN Reason: Hypotension Fentanyl (Fentanyl 100 Mcg/2 Ml Sdv) 100 mcg EPIDUR Q3H PRN PRN Reason: Pain Fentanyl/Bupivacaine HCl (Bupivacaine/Fentanyl/Ns 100 Ml Bag) 100 ml EPIDUR ASDIRECTED CARLOS A Ampicillin Sodium 2 gm/ Sodium (Chloride) 100 mls @ 200 mls/hr IV ONETIME ONE Stop: 10/30/20 20:29 Last Admin: 10/30/20 20:32 Dose: 200 mls/hr Documented by: Ampicillin Sodium 1 gm/ Sodium (Chloride) 100 mls @ 200 mls/hr IV Q4H CARLOS A Last Admin: 10/31/20 03:56 Dose: 200 mls/hr Documented by: Oxytocin/Lactated Ringer's (Pitocin In Lr 10 Units/1,000 Ml) 10 unit in 1,000 mls @ 500 mls/hr IV .CONTINUOUS CARLOS A Oxytocin/Lactated Ringer's (Pitocin In Lr 10 Units/1,000 Ml) 10 unit in 1,000 mls @ 12 mls/hr IV TITRATE CARLOS A; Protocol Lactated Ringer's (Ringers, Lactated) 1,000 mls @ 100 mls/hr IV ASDIRECTED [facility] Last Admin: 10/31/20 03:57 Dose: 100 mls/hr Documented by: Lidocaine HCl (Lidocaine 1% 50 Ml Mdv) 50 ml INJECT ONETIME ONE Stop: 10/30/20 19:34 Last Admin: 10/31/20 06:35 Dose: 50 ml Documented by: Lidocaine HCl (Lidocaine 1% 50 Ml Mdv) Confirm Administered Dose 50 ml .ROUTE .STK-MED ONE Stop: 10/31/20 06:35 Last Admin: 10/31/20 21:48 Dose: Not Given Documented by: Miscellaneous Medication (Phenylephrine Hcl In 0.9% Nacl 1 Mg/10 Ml Syringe) 0 mg IVPUSH ONETIME ONE Stop: 10/31/20 06:52 Last Admin: 10/31/20 21:48 Dose: Not Given Documented by: Nalbuphine HCl (Nalbuphine 10 Mg/1 Ml Vial) 10 mg IVPUSH Q2H PRN PRN Reason: Pain Last Admin: 10/31/20 04:00 Dose: 10 mg Documented by: Ondansetron HCl (Ondansetron 4 Mg/2 Ml Sdv) 4 mg IVPUSH Q4H PRN PRN Reason: Nausea/Vomiting Ondansetron HCl (Ondansetron 4 Mg/2 Ml Sdv) 4 mg IVPUSH ONETIME PRN PRN Reason: Nausea/Vomiting Sodium Chloride (Sodium Chloride 0.9% 10 Ml Syringe) 10 ml FLUSH ASDIRECTED PRN PRN Reason: Keep Vein Open - Interaction Infant Disposition, : [place] in Room with Family Infant Interaction: Holding Infant Feeding: Attempted ; Nursed Fair/Poor Support Person: - Recovery Exam Fundal Tone: Firm Fundal Level: 3 Fingerbreadths Above Umbilicus Fundal Placement: Midline Lochia Amount: Small Lochia Color: Rubra/Red Perineum Description: Other (see below) Other Perinuem Description: second degree and vaginal lac with repair Bladder Status: Voiding Urinary Elimination: Voided - Exam General: Alert, Oriented, Cooperative GI/Abdominal Exam: Soft, Non-Tender - Problem List & Annotations (1) 40 weeks gestation of SNOMED Code(s): 13377534 Code(s): Z3A.40 - 40 WEEKS GESTATION OF Status: Acute Current Visit: Yes (2) Second degree perineal laceration SNOMED Code(s): 6037526 Code(s): O70.1 - SECOND DEGREE PERINEAL LACERATION DURING DELIVERY Status: Acute Current Visit: Yes (3) Spontaneous vaginal delivery SNOMED Code(s): 686927826 Code(s): O80 - ENCOUNTER FOR FULL-TERM UNCOMPLICATED DELIVERY Status: Acute Current Visit: Yes (4) hemorrhage SNOMED Code(s): 80216291 Code(s): O72.1 - OTHER IMMEDIATE HEMORRHAGE Status: Acute Current Visit: Yes Qualifiers: hemorrhage type: unspecified Qualified Code(s): O72.1 - Other immediate hemorrhage - Problem List Review Problem List Initiated/Reviewed/Updated: Yes - Assessment Assessment:: PPD#2 - Plan Plan:: * Routine cares * Patient tolerated low blood count well. Able to walk around unit without issues. reviewed iron supplementation use along with PNV on discharge * Breast feeding * Discharge home today
--- NOTE | 2020-11-02 09:01 | PCM.DCSUM1 ---
Discharge Summary - Discharge Data Discharge Date: 11/02/20 Discharge Disposition: Home, Self-Care 01 Condition: Good - Referral to Home Health Primary Care Physician: Frandy Plummer MD - Discharge Diagnosis/Problem(s) (1) 40 weeks gestation of SNOMED Code(s): 14856863 ICD Code: Z3A.40 - 40 WEEKS GESTATION OF Status: Acute Current Visit: Yes (2) Second degree perineal laceration SNOMED Code(s): 5264494 ICD Code: O70.1 - SECOND DEGREE PERINEAL LACERATION DURING DELIVERY Status: Acute Current Visit: Yes (3) Spontaneous vaginal delivery SNOMED Code(s): 715103691 ICD Code: O80 - ENCOUNTER FOR FULL-TERM UNCOMPLICATED DELIVERY Status: Acute Current Visit: Yes (4) hemorrhage SNOMED Code(s): 70562425 ICD Code: O72.1 - OTHER IMMEDIATE HEMORRHAGE Status: Acute Current Visit: Yes Qualifiers: hemorrhage type: unspecified Qualified Code(s): O72.1 - Other immediate hemorrhage - Patient Summary/Data Complications: None Consults: None Recommended Follow-up Testing/Procedures: Follow up for check in 3 weeks Hospital Course: 34 y/o at 40 6/7 wks who presented for IOL. Induction done with pitocin and AROM. Progressed well to complete dilation. Underwent vaginal delivery. Delivery notable for hemorrhage. Did drop Hb to 7.3. Tolerated this well and did not require transfusion. Was eventually discharged home on PPD#2 - Patient Instructions Diet: Regular Diet as Tolerated Activity: As Tolerated Activity, Other: Pelvic rest for 6 weeks Driving: May Drive Today Showering/Bathing: May Shower Showering/Bathing, Other: May bather Notify Provider of: Fever, Increased Pain, Swelling and Redness, Drainage, Nausea and/or Vomiting - Discharge Plan *PRESCRIPTION DRUG MONITORING PROGRAM REVIEWED*: No *COPY OF PRESCRIPTION DRUG MONITORING REPORT IN PATIENT CARLOS: No Home Medications: Home Meds Prenat 115/Iron Fum/Folic/Dss [ 19 Tablet] 1 each PO DAILY 08/01/19 [History] Ferrous Sulfate [Iron] 325 mg PO ASDIRECTED 10/30/20 [History] Docusate Sodium [Colace] 100 mg PO BID cap 10/31/20 [Rx] Ibuprofen [Motrin] 600 mg PO Q4H PRN tablet 10/31/20 [Rx] Referrals: Frandy Plummer MD [Primary Care Provider] - (2-3 weeks for check ) - Discharge Summary/Plan Comment DC Time >30 min.: No - Patient Data Vitals - Most Recent: Last Vital Signs Temp 36.7 C 11/02/20 03:56 Pulse 76 11/02/20 03:49 Resp 16 11/02/20 03:49 BP 115/96 H 11/02/20 03:49 Pulse Ox 98 11/02/20 03:49 Weight - Most Recent: 83.007 kg Med Orders - Current: Current Medications Acetaminophen (Acetaminophen 325 Mg Tab) 650 mg PO Q4H PRN PRN Reason: mild pain or fever Benzocaine/Menthol (Benzocaine/Menthol 20%-0.5% [place] 56 Gm Canister) 0 gm TOP ASDIRECTED PRN PRN Reason: Perineal Comfort Measure Last Admin: 10/31/20 09:40 Dose: 1 spray Documented by: Docusate Sodium (Docusate Sodium 100 Mg Cap) 100 mg PO BID [facility] Last Admin: 11/02/20 08:28 Dose: 100 mg Documented by: Ibuprofen (Ibuprofen 600 Mg Tab) 600 mg PO Q4H PRN PRN Reason: Mild pain or fever Prenat Multivit/[place]/Iron/Folic Ac ( Multivitamin With Calcium/Folic Acid/Iron Tab) 1 each PO DAILY [facility] Last Admin: 11/02/20 08:28 Dose: 1 each Documented by: Laurel Grigsby (Laurel Grigsby Medicated Pads 40/Jar) 1 pad TOP ASDIRECTED PRN PRN Reason: Perineal Comfort Measure Last Admin: 10/31/20 09:39 Dose: 1 pad Documented by: Discontinued Medications Acetaminophen (Acetaminophen 325 Mg Tab) 650 mg PO Q4H PRN PRN Reason: Pain (Mild 1-3) and fever Calcium Carbonate/Glycine (Calcium Carbonate 500 Mg Tab.Chew) 1,000 mg PO Q2H PRN PRN Reason: Indigestion Ephedrine Sulfate (Ephedrine 50 Mg/Ml Sdv) 5 mg IVPUSH ASDIRECTED PRN PRN Reason: Hypotension Fentanyl (Fentanyl 100 Mcg/2 Ml Sdv) 100 mcg EPIDUR Q3H PRN PRN Reason: Pain Fentanyl/Bupivacaine HCl (Bupivacaine/Fentanyl/Ns 100 Ml Bag) 100 ml EPIDUR ASDIRECTED CARLOS A Ampicillin Sodium 2 gm/ Sodium (Chloride) 100 mls @ 200 mls/hr IV ONETIME ONE Stop: 10/30/20 20:29 Last Admin: 10/30/20 20:32 Dose: 200 mls/hr Documented by: Ampicillin Sodium 1 gm/ Sodium (Chloride) 100 mls @ 200 mls/hr IV Q4H CARLOS A Last Admin: 10/31/20 03:56 Dose: 200 mls/hr Documented by: Oxytocin/Lactated Ringer's (Pitocin In Lr 10 Units/1,000 Ml) 10 unit in 1,000 mls @ 500 mls/hr IV .CONTINUOUS CARLOS A Oxytocin/Lactated Ringer's (Pitocin In Lr 10 Units/1,000 Ml) 10 unit in 1,000 mls @ 12 mls/hr IV TITRATE CARLOS A; Protocol Lactated Ringer's (Ringers, Lactated) 1,000 mls @ 100 mls/hr IV ASDIRECTED [facility] Last Admin: 10/31/20 03:57 Dose: 100 mls/hr Documented by: Lidocaine HCl (Lidocaine 1% 50 Ml Mdv) 50 ml INJECT ONETIME ONE Stop: 10/30/20 19:34 Last Admin: 10/31/20 06:35 Dose: 50 ml Documented by: Lidocaine HCl (Lidocaine 1% 50 Ml Mdv) Confirm Administered Dose 50 ml .ROUTE .STK-MED ONE Stop: 10/31/20 06:35 Last Admin: 10/31/20 21:48 Dose: Not Given Documented by: Miscellaneous Medication (Phenylephrine Hcl In 0.9% Nacl 1 Mg/10 Ml Syringe) 0 mg IVPUSH ONETIME ONE Stop: 10/31/20 06:52 Last Admin: 10/31/20 21:48 Dose: Not Given Documented by: Nalbuphine HCl (Nalbuphine 10 Mg/1 Ml Vial) 10 mg IVPUSH Q2H PRN PRN Reason: Pain Last Admin: 10/31/20 04:00 Dose: 10 mg Documented by: Ondansetron HCl (Ondansetron 4 Mg/2 Ml Sdv) 4 mg IVPUSH Q4H PRN PRN Reason: Nausea/Vomiting Ondansetron HCl (Ondansetron 4 Mg/2 Ml Sdv) 4 mg IVPUSH ONETIME PRN PRN Reason: Nausea/Vomiting Sodium Chloride (Sodium Chloride 0.9% 10 Ml Syringe) 10 ml FLUSH ASDIRECTED PRN PRN Reason: Keep Vein Open
[2020-11-02 10:48] VITALS: BP 135/72; PULSE 85
== END 2020-11-02 12:10 | disposition home or self-care (01) | DRG 560 ==
LOC: JD.OB 06:33 → OBSVTOIN 10-31 06:33 → JD.OB 10-31 06:34
PROVIDERS: ADMIT Obstetrics & Gynecology; ATTEND Obstetrics & Gynecology
PROC: 10E0XZZ Delivery of Products of Conception, External Approach (ICD-10-PCS; principal; 2020-10-31)
PROC: 10907ZC Drainage of Amniotic Fluid, Therapeutic from Products of Conception, Via Natural or Artificial Opening (ICD-10-PCS; 2020-10-31)
PROC: 3E033VJ Introduction of Other Hormone into Peripheral Vein, Percutaneous Approach (ICD-10-PCS; 2020-10-31)
PROC: 0KQM0ZZ Repair Perineum Muscle, Open Approach (ICD-10-PCS; 2020-10-31)
DX: O48.0 Post-term pregnancy (principal); Z3A.40 40 weeks gestation of pregnancy; Z37.0 Single live birth; O72.1 Other immediate postpartum hemorrhage; O99.824 Streptococcus B carrier state complicating childbirth; O70.1 Second degree perineal laceration during delivery; Z20.822 Contact with and (suspected) exposure to COVID-19
CPT/HCPCS: 36415; 59025; 59409; 85025; 85027; 86592; A9270-GY; J0290; J2001; J2300; J7120; U0002